=== PATIENT | male | born 1980 | race Caucasian/White ===

== ENCOUNTER 2017-03-06 15:25 | Emergency (ER) | payer OTHER ==
[2017-03-06 15:39] VITALS: BP 137/90
[2017-03-06] MEDS ORDERED: Lidocaine 1% 50 ML MDV INJECT ONE (16:13)
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
--- NOTE | 2017-03-08 10:25 | CR ---
Right hand: Three views of the right hand were obtained. Comparison: No prior study. Joint spaces are preserved. No fracture, dislocation or other bony abnormality is identified. Impression: 1. No abnormality is identified on right hand study. Diagnostic code #1
== END 2017-03-06 17:55 | disposition home or self-care (01) ==
LOC: JD.ED 15:25
DX: S61.411A Laceration without foreign body of right hand, initial encounter (principal); V86.56XA Driver of dirt bike or motor/cross bike injured in nontraffic accident, initial encounter; E78.00 Pure hypercholesterolemia, unspecified
CPT/HCPCS: 12002; 73130-26-RT; 73130-RT; 99282-25; 99283-25